=== PATIENT | male | born 2005 | race Two or more races ===

== ENCOUNTER 2024-09-24 13:18 | Emergency (ER) | payer OTHER ==
[~2024-09-24] VITALS: Ht 167.6 cm; Wt 86.2 kg
[2024-09-24] MEDS ORDERED: OZEMPIC1 MG/0.71 SQ (13:48)
[2024-09-24] MEDS ORDERED: DESCOVY 200-251 EACH PO (13:48)
[2024-09-24] MEDS ORDERED: OZEMPIC0.25 MG/02 SQ (13:49)
== END 2024-09-24 15:50 | disposition home or self-care (01) ==
LOC: ER 13:18
DX: J06.9 Acute upper respiratory infection, unspecified (principal); Z88.8 Allergy status to other drugs, medicaments and biological substances